=== PATIENT | female | born 1960 | race Caucasian/White ===

== ENCOUNTER 2020-09-05 07:32 | Outpatient (CLI) | payer OTHER, SELFPAY ==
--- NOTE | ~2020-09-05 | NM_ITS ---
EXAMINATION: NM hepatobiliary w pharm DATE: 09/05/2020 10:21 INDICATION: Right upper quadrant abdominal pain COMPARISON: None. TECHNIQUE: 5.2 mCi Tc-99m mebrofenin (Choletec) was administered intravenously. Scintigraphic images of the abdomen were obtained for one hour. 1.1 mcg sincalide (Kinevac) was administered by slow intr avenous infusion, and imaging was continued for 30 minutes. Gallbladder ejection fraction was calcula arminda by the technologist. FINDINGS: There is normal clearance of radiotracer from the blood pool. There is homogeneous tracer uptake by t he liver. Activity progresses to the gallbladder and bowel. The gallbladder ejection fraction (GBEF) is 77% (normal 10-90%, but most patient with gallbladder dysfunction have GBEF < 35% which does over lap with the normal range). IMPRESSION: 1. Normal hepatobiliary scan. Reviewed, dictated and finalized at location A. [employer]
== END 2020-09-05 07:33 | disposition home or self-care (01) ==
PROVIDERS: PCP Family Medicine; Visit Provider Family Medicine
DX: R10.11 Right upper quadrant pain (principal)
CPT/HCPCS: 78227; A9537; J2805

== ENCOUNTER → 2020-10-08 01:33 | Outpatient (CLI) | payer OTHER, SELFPAY ==
[2020-10-08 20:22] LABS: SARS-CoV-2 RNA PCR Negative
== END ==
PROVIDERS: PCP Family Medicine; Visit Provider Internal Medicine Gastroenterology
DX: Z01.812 Encounter for preprocedural laboratory examination (principal); Z20.822 Contact with and (suspected) exposure to COVID-19
CPT/HCPCS: C9803; U0003; U0005

== ENCOUNTER 2020-10-11 00:44 | Day surgery (SDC) | payer OTHER, SELFPAY ==
[2020-09-28 15:34] VITALS: BMI 20.8
--- NOTE | 2020-10-11 08:40 | P.PNAN_ITS ---
Anes - Initial Pre Proc Eval Procedure: Operation Date: 10/11/20 10:15 Proposed Procedures p Esophagogastroduodenoscopy And Screening Colonoscopy - Wilfredo Villarreal MD Date/Time: 10/11/20 08:40 Surgeon: Wilfredo Neves MD Pre Op Diagnosis: Abdominal Pain, Neoplasm Screening, Nausea Patient Data Age: 60 Gender: F Height: 5 ft 4 in Weight: 55 kg Allergies Allergy/AdvReac Type Severity Reaction Status Date / Time No Known Allergies Allergy Verified 10/11/20 08:44 Home Medications Medication Instructions Recorded Confirmed Type omeprazole 20 mg capsule,delayed 20 mg PO DAILY #30 cap 08/29/20 09/28/20 Rx release Patient hx anesthesia problems: none Family hx anesthesia problems: none PMFSH Past Medical History Medical History Nausea & vomiting Nausea & vomiting Tobacco use disorder Surgical History Surgical History Hx of hysterectomy Family History Family History Father Malignant neoplasm of prostate Mother Family history of malignant neoplasm of brain Aortic aneurysm Grandparent Aortic aneurysm Social History Social History Social History: Single Smoking packs per day: 1 Smoking cigarettes per day: 20.0 Years smoked: 36 Smoking pack-years: 36.00 Smoking status: Current every day smoker Tobacco type: cigarettes Second hand tobacco smoke exposure: Yes Alcohol intake: never Substance use: never Substance use type: does not use Living arrangements: with family Gender identity (if verbalized by the patient): Female Spiritual care concerns: No Anes - Eval Final PreProcedure Day of Procedure 10/11/20 08:40 Patient weight: normal Heart: regular rate and rhythm Lungs: decreased breath sounds Airway: Mallampati scale class II Neurological: alert and oriented Last oral intake: >/= 8 hours ASA classification: III Emergent: no Anesthetic plan: proceed Anesthesia type and monitoring: general GIVS and standard monitoring Informed Consent: The patient's anesthetic plan and its attendant risks and benefits were discussed with the patient/family/POA. Questions were solicited and answers provided to the satisfaction of the patient/family/POA.
[2020-10-11 08:45] VITALS: BP 122/76; PULSE 82; RESP 18; TEMP 36.6; O2SAT 99
[2020-10-11] MEDS: LACTATED RINGERS 1,000 ML 150 ML IV CONT (08:50)
--- NOTE | 2020-10-11 09:47 | PM.HPGS ---
History of Present Illness History of Present Illness Consent: Risks, benefits, and alternatives have been discussed and questions answered. Patient agrees to proceed with procedure. Chief complaint: Abdominal Pain, Neoplasm Screening, Nausea Narrative: Marie Jung is a 60 year old female with epigastric pain, nausea and bloating after eating worse for 2 months, also loose stools. Colonoscopy more than 10 years ago. Review of Systems Constitutional: Constitutional: Denies headache(s) and Denies weakness Eyes: Eyes: Denies blurry vision ENT: Reports Normal hearing present, Denies headache(s) and Denies neck pain Cardiovascular: Cardiovascular: Denies chest pain and Denies dyspnea Respiratory: Respiratory: Denies dyspnea Gastrointestinal: Gastrointestinal: Reports no additional gastrointestinal complaints Genitourinary: Genitourinary: Denies dysuria Musculoskeletal: Musculoskeletal: Denies neck pain Integumentary/Breasts: Skin/Breast: Denies dry skin Neurologic: Reports Normal hearing present, Denies headache(s) and Denies weakness Psychiatric: Psychiatric: Denies anxiety Endocrine: Endocrine: Denies change in body appearance Hematologic/Lymphatic: Hematologic/Lymphatic: Denies easy bleeding Allergic/Immunologic: Allergic/Immunologic: Denies urticaria PMFSH Past Medical History Medical History Nausea & vomiting Nausea & vomiting Tobacco use disorder Surgical History Surgical History Hx of hysterectomy Family History Family History Father Malignant neoplasm of prostate Mother Family history of malignant neoplasm of brain Aortic aneurysm Grandparent Aortic aneurysm Social History Social History Social History: Single Smoking packs per day: 1 Smoking cigarettes per day: 20.0 Years smoked: 36 Smoking pack-years: 36.00 Smoking status: Current every day smoker Tobacco type: cigarettes Second hand tobacco smoke exposure: Yes Alcohol intake: never Substance use: never Substance use type: does not use Living arrangements: with family Gender identity (if verbalized by the patient): Female Spiritual care concerns: No Meds Home Medications and Allergies Home Medications Medication Instructions Recorded Confirmed Type omeprazole 20 mg capsule,delayed 20 mg PO DAILY #30 cap 08/29/20 09/28/20 Rx release Allergies Allergy/AdvReac Type Severity Reaction Status Date / Time No Known Allergies Allergy Verified 10/11/20 08:44 Vital Signs Vital Signs - 24 hr 10/11/20 08:45 Temperature 97.8 F Pulse Rate 82 Respiratory Rate 18 Blood Pressure 122/76 Pulse Oximetry 99 Exam Const: General: comfortable and no acute distress HENMT: General nose exam: Normal nares present Eyes: General: appearance normal, both eyes and all related structures Neck: Neck: no JVD Resp: Auscultation: clear to auscultation bilaterally Cardio: Rate: regular rate Rhythm: regular rhythm GI: Inspection: non-distended GI Palp: Yes Soft to palpation Skin: General skin exam: normal color Neuro: General: gait normal Speech: normal speech Extrem: General: normal to inspection Psych: Mental Status: mental status grossly normal Assessment and Plan Assessment and plan (1) Bloating symptom: Code(s): R14.0 - Abdominal distension (gaseous) Status: Acute Assessment and Plan: egd with bx (2) Epigastric abdominal pain: Code(s): R10.13 - Epigastric pain Status: Acute (3) Nausea & vomiting: Code(s): R11.2 - Nausea with vomiting, unspecified Status: Acute (4) Colon cancer screening: Code(s): Z12.11 - Encounter for screening for malignant neoplasm of colon Sta
[2020-10-11] MEDS: BENZOCAINE (*SP) 60 ML SPRAY CAN (HURRICAINE) 1 SPRAY MUCOUS MEM (09:53)
[2020-10-11 10:15] VITALS: BP 94/62; PULSE 74; RESP 23; O2SAT 96
[2020-10-11 10:25] VITALS: BP 113/77; PULSE 71; RESP 16; O2SAT 96
[2020-10-11 10:35] VITALS: BP 125/80; PULSE 73; RESP 24; O2SAT 100
== END 2020-10-11 10:42 | disposition home or self-care (01) ==
PROVIDERS: PCP Family Medicine; Visit Provider Internal Medicine Gastroenterology
PROC: 0DJ08ZZ Inspection of Upper Intestinal Tract, Via Natural or Artificial Opening Endoscopic (ICD-10-PCS; CPT 43235; principal; 2020-10-11 10:15)
DX: Z12.11 Encounter for screening for malignant neoplasm of colon (principal); K52.9 Noninfective gastroenteritis and colitis, unspecified; K29.50 Unspecified chronic gastritis without bleeding; R10.13 Epigastric pain; R11.2 Nausea with vomiting, unspecified; F17.210 Nicotine dependence, cigarettes, uncomplicated; R14.0 Abdominal distension (gaseous); K64.8 Other hemorrhoids
CPT/HCPCS: 43239; 45380; 87081; 88305; C9803; J2704; J7120; U0003; U0005

== ENCOUNTER 2022-02-16 14:35 | Outpatient (CLI) | payer OTHER, SELFPAY ==
--- NOTE | ~2022-02-16 | CT_ITS ---
EXAMINATION: CT abdomen pelvis w con DATE: 02/16/2022 15:11 INDICATION: Epigastric abdominal pain. TECHNIQUE: Computed tomography (CT) of the abdomen and pelvis was performed with 100 mL Omnipaque 350 intravenous contrast. Automated exposure control and iterative reconstruction technique were employe d. The dose-length product was 184.67 mGy-cm. COMPARISON: None. FINDINGS: The visualized portions of the lung bases demonstrate a pneumatocele in right lower lobe. N o pleural effusion. The liver, gallbladder, spleen, pancreas, and adrenal glands are normal. There ar e cysts in the kidneys measuring up to 4 mm on the left. There are no dilated loops of bowel. The diaz endix is normal. There are no pathologically enlarged lymph nodes. There is no free intraperitoneal f luid. The bones are unremarkable. IMPRESSION: 1. No etiology for the patient's symptoms. Reviewed, dictated and finalized at location A.
[2022-02-16 15:05] LABS: Estimated Glomerular Filt Rate > 60
== END 2022-02-16 14:36 | disposition home or self-care (01) ==
PROVIDERS: PCP Family Medicine; Visit Provider Nurse Practitioner Gerontology
DX: N13.30 Unspecified hydronephrosis (principal); N39.0 Urinary tract infection, site not specified; R13.10 Dysphagia, unspecified; R11.2 Nausea with vomiting, unspecified; R14.0 Abdominal distension (gaseous); R52 Pain, unspecified
CPT/HCPCS: 74177; Q9967

== ENCOUNTER 2024-01-03 09:13 | Outpatient (CLI) | payer OTHER, SELFPAY ==
--- NOTE | ~2024-01-03 | XR_ITS ---
EXAMINATION: XR chest 2V 01/03/2024 09:29 INDICATION: Shortness of breath PROCEDURE: 2 view chest COMPARISON: No prior studies for comparison. FINDINGS: The lungs are clear. The lungs are hyperinflated which is consistent with, but not diagnost ic of chronic obstructive pulmonary disease. The cardiomediastinal silhouette is within normal limits . There are no pleural effusions. There is no pneumothorax suspected. IMPRESSION: 1: NO ACUTE CARDIOPULMONARY DISEASE. Reviewed, dictated and finalized at location B.
== END 2024-01-03 09:14 ==
PROVIDERS: PCP Family Medicine; Visit Provider Family Medicine
DX: R06.02 Shortness of breath (principal)
CPT/HCPCS: 71046

== ENCOUNTER 2024-01-08 14:48 | Outpatient (CLI) | payer OTHER, SELFPAY ==
--- NOTE | ~2024-01-08 | CT_ITS ---
EXAMINATION: CT lung screening DATE: 01/08/2024 15:02 INDICATION: F17.200 - Nicotine dependence, unspecified, uncomplicated TECHNIQUE: Computed tomography (CT) of the chest was performed without intravenous contrast. Addition al 3D reconstructions utilizing coronal maximum intensity projection (MIP) were performed. Automated exposure control and iterative reconstruction technique were employed. The dose-length product was 37 .11 mGy-cm. COMPARISON: None FINDINGS: Mild emphysema. 1.5 cm thin-walled pneumatocele in the posterior right lower lobe. 3 mm calcified nod ule consistent with old granulomatous disease at the junction of the left upper lobe and lingula. The re are a few scattered 3 mm smaller pulmonary nodules in both lungs. No other larger pulmonary nodule s, pneumonia or pleural effusion. Heart size is normal. Small amount of atherosclerotic coronary lalitha ry calcific a rowland. Thoracic aorta is normal in caliber. No pathologically enlarged thoracic lymphade nopathy. Visualized upper abdomen is unremarkable. Mild thoracic spondylosis. IMPRESSION: 1. Lung-RADS category 2: Benign appearance or behavior. Continue annual screening with noncontrast lo w-dose chest CT in 12 months. Reviewed, dictated and finalized at location B. IMPRESSION: 1. Lung-RADS category 2: Benign appearance or behavior. Continue annual screeni ng with noncontrast low-dose chest CT in 12 months.
== END 2024-01-08 14:49 ==
LOC: MICIMG 14:49
PROVIDERS: PCP Family Medicine; Visit Provider Family Medicine
DX: Z12.2 Encounter for screening for malignant neoplasm of respiratory organs (principal); F17.210 Nicotine dependence, cigarettes, uncomplicated
CPT/HCPCS: 71271

== ENCOUNTER 2024-02-28 08:02 | Outpatient (CLI) | payer OTHER, SELFPAY ==
--- NOTE | 2024-03-03 17:49 | P.PCNPFT_ITS ---
PFT Procedure Performed PFT Procedure Performed Spirometry with Pre/Post Bronchodilator Plethysmography (Lung Vol) Diffusing Cap (DLCO) Flow Vol Loop PFT Interpretation DOS:02/28/2024 REQUESTING: Maynor Pelletier APRN REASON FOR TESTING: shortness of breath PULMONARY FUNCTION TESTS Repeatability of spirometry FEV1 maneuver pre-bronchodilator is Grade A. Repeatability of spirometry FEV1 maneuver post-bronchodilator is Grade B. Spirometry: The pre-bronchodilator FEV1 is 1.63 L, 66%, decreased. The pre- bronchodilator FVC is 2.76 L, 88%, normal. The FEV1/FVC ratio is 59%, decreased, consistent with airflow obstruction. After bronchodilator, the FEV1 is 1.82 L, 74% predicted, +12%. The FVC is 2.96 L, 95%, +7%. The FEV1/FVC ratio is 62% predicted, decreased. Lung volumes: The total lung capacity is 5.74 L, 113%, normal. The residual volume is 2.89 L, 142%, increased, consistent with air trapping. The RV/TLC is 50%, normal. Airway resistance is increased. Diffusion: DLCO is 10.6, 50% predicted, decreased. The DLCO/VA is 2.61, 59%, decreased. Flow volume loop: The flow volume loop shows mild coving of the expiratory limb. IMPRESSION: This spirometry shows a mild obstructive ventilatory impairment with borderline response to bronchodilator, air trapping and moderate diffusion impairment which is fixed. There are no prior studies for comparison. Staci Owens MD
--- NOTE | 2024-03-03 17:54 | WPDSIXMINUTE ---
Six Minute Walk Procedure Procedure Performed Pulmonary Stress Test (6 min walk) Six Minute Walk Six Minute Walk: DATE OF SERVICE: 02/28/2024 REQUESTING: Maynor Pelletier APRN REASON FOR TESTING: shortness of breath SIX MINUTE WALK This test was conducted per ATS guidelines. she walked while breathing room air and did not have any walking aids. She recently completed foot surgery. The initial saturation was 99%, and initial heart rate was 71beats per minute. The patient walked without stopping, completing 1250 ft, 381 m. The saturation at the end of testing was 99%, and the heart rate was 81 beats per minute. IMPRESSION: This is a normal study. The patient did not require supplemental oxygen with exertion. Distance walked is appropriate for age. Staci Owens MD
== END 2024-02-28 08:03 | disposition home or self-care (01) ==
PROVIDERS: PCP Family Medicine; Visit Provider Nurse Practitioner Family
DX: R06.02 Shortness of breath (principal)
CPT/HCPCS: 94060; 94618; 94726; 94729

== ENCOUNTER 2024-03-27 09:17 | Outpatient (CLI) | payer OTHER, SELFPAY ==
--- NOTE | 2024-04-21 11:30 | WPDSLEEPSTUD ---
Sleep Study Date of Study: 03/27/24 Ordering Provider: Maynor Pelletier APRN Interpreting Physician: Cassie Nova DO Sleep Study Type: Polysomnogram Height: 1.63 m Weight: 52.163 kg Body Mass Index: 19.7 Neck Circumference (inches): 12 [place]: 8 Reason for Sleep Study Snoring, daytime hypersomnia Sleep History The patient is a 64-year-old female that had a sleep study ordered by the Pulmonary group for evaluation of daytime sleepiness. The patient denies awakening from sleep short of breath. She rarely awakens at night with heartburn, belching or cough. She frequently snores but is rarely loud enough that others complain. She occasionally has trouble sleeping when she has a cold. She denies waking up gasping for air throughout the night. She rarely has breathing problems at night observed by herself or others. She occasionally sweats excessively at night. She denies having heart palpitations or irregular heartbeats during the night. She rarely falls asleep during the day but never while driving. She denies sleep paralysis, cataplexy and hypnagogic / hypnopompic hallucinations. She rarely has trouble at school or work due to sleepiness. She denies feeling afraid of going to sleep. She denies having nightmares. She denies remembering her dreams. She frequently has thoughts racing through her mind. She rarely feels sad or depressed. She occasionally has anxiety. She occasionally has muscular tension. She frequently notices parts of her body jerk. She frequently kicks during the night. She rarely has crawling and aching feelings in her legs and never experiences leg pain during the night. She frequently grinds her teeth during sleep and frequently awakens with morning jaw pain. She denies being bothered by pain during the day and denies being awakened by pain during the night. She rarely wakes up feeling stiff in the morning. She rarely wakes up with sore or achy muscles. She frequently wakes up with pain in the neck. She goes to bed between 9-9:30 p.m. on weekdays and between 10;30-11 p.m. on the weekends. It takes her 30-45 minutes to fall asleep. She wakes up once throughout the night to urinate and the amount of time it takes her to fall asleep is variable. She wakes up at 5:30 a.m. on weekdays and between 6;30-7 a.m. on the weekends. She typically gets 7 hours of sleep per night. She does not stay in bed after waking up in the morning. She currently lives alone. She denies consuming any caffeinated beverages within 2 hours of bedtime. She denies engaging in physical exercise before bedtime. She will watch television before falling asleep. She denies taking naps in the afternoon or the evening. She consumes 2 cups of coffee and 1 can of caffeinated soda per day. She currently smokes a half a pack of cigarettes per day. She consumes alcohol socially on some weekends. She denies recreational drug use. [facility] Past Medical History Medical History Breast screening Cough Indigestion Irritable bowel syndrome without diarrhea Lipid screening Nausea & vomiting Nausea & vomiting Normal colonoscopy Polycythemia Tobacco abuse Tobacco use disorder Tobacco use disorder, continuous Surgical History Surgical History Hx of esophagogastroduodenoscopy Hx of hysterectomy Family History Family History Father Malignant neoplasm of prostate Mother Family history of malignant neoplasm of brain Aortic aneurysm Grandparent Aortic aneurysm Social History Social History Social History: Single Smoking packs per day: 0.5 Smoking cigarettes per day: 10.0 Years smoked: 36 Smoking pack-years: 18.00 Smoking status: Current every day smoker Tobacco type: cigarettes [place]
[2024-04-21 11:36] VITALS: BMI 19.7
== END 2024-03-28 06:25 | disposition home or self-care (01) ==
LOC: ANHCSM 09:19
PROVIDERS: PCP Family Medicine; Visit Provider Nurse Practitioner Family
DX: G47.10 Hypersomnia, unspecified (principal); G47.30 Sleep apnea, unspecified; G47.61 Periodic limb movement disorder
CPT/HCPCS: 95810